=== PATIENT | male | born 1985 | race Caucasian/White ===

== ENCOUNTER 2023-11-14 07:06 | Inpatient (IN) ==
[2023-11-14 07:44] LABS: ABS Eosinophils 0.3 10^3/uL (0.0-0.5); ABS Lymphocytes 3.2 10^3/uL (1.0-4.8); ABS Monocytes 0.6 10^3/uL (0.0-1.1); ABS Neutrophils 3.5 10^3/uL (1.5-7.6); ABS Nucleated RBC 0.01 10^3/ul; Eosinophil % 3.5 %; Hematocrit 45.4 % (38-53); Hemoglobin 15.6 g/dL (13.2-16.3); Lymphocyte % 41.9 %; Mean Corpuscular Hemoglobin 31.9 pg (27-33); Mean Corpuscular Hgb Conc 34.4 g/dL (31-36); Mean Corpuscular Volume 92.8 fL (80-97); Mean Platelet Volume 9.4 fL (7.5-11.2); Nucleated Red Blood Cells % 0.1 %/100WBC (0.0-0.8); Platelet Count 185 10^3/uL (150-450); Red Blood Count 4.89 10^6/uL (4.06-5.63); Red Cell Distribution Width 12.7 % (12-17); White Blood Count 7.5 10^3/uL (3.6-10.2)
[2023-11-14] MEDS: NS 0.9% 1000 ml BAG 1,000 ML IV ONE (07:45)
[2023-11-14 08:21] LABS: TSH Ultra Thyroid Stim Horm 3.6 mcIU/mL (0.34-5.60)
[2023-11-14 08:23] LABS: Free T4 1.34 ng/dL (0.61-1.12)
[2023-11-14 08:24] LABS: Albumin 4.4 g/dL (3.2-5.2); Albumin/Globulin Ratio 1.9 (1-3); Calcium 9.4 mg/dL (8.6-10.3); Creatinine, Serum 1.08 mg/dL (0.67-1.17); Globulin 2.3 g/dL (2-4); Magnesium 1.7 mg/dL (1.9-2.7); Potassium 4.6 mmol/L (3.5-5.0); Total Bilirubin 1.3 mg/dL (0.2-1.0); Total Protein 6.7 g/dL (6.4-8.9); eGFR CKD-EPI 90.6 (>60)
[2023-11-14] MEDS: Magnesium Sulfate 2 gm BAG 2 GM/50 ML BAG IVPB ONE (08:57)
[2023-11-14 09:16] LABS: INR 1.28 (0.85-1.14)
[2023-11-14 09:21] LABS: High Sensitivity Troponin 1 Hr 5 pg/mL (<20)
[2023-11-15 06:35] LABS: Calcium 9.2 mg/dL (8.6-10.3); Creatinine, Serum 1.15 mg/dL (0.67-1.17); Magnesium 1.9 mg/dL (1.9-2.7); Potassium 4.5 mmol/L (3.5-5.0); eGFR CKD-EPI 84.1 (>60)
[2023-11-15] MEDS ORDERED: Naloxone 0.4 mg VIAL 0.4 mg/ml 1 ml VIAL ONE (07:54)
[2023-11-15] MEDS ORDERED: fentaNYL 100 mcg/2 ml 50 MCG/ML VIAL ONE (07:54)
[2023-11-15] MEDS ORDERED: Flumazenil 0.5 mg/5 ml 0.1 MG/ML 5 ml VIAL ONE (07:54)
[2023-11-15] MEDS ORDERED: Midazolam 5 mg/5 ml VIAL 1 mg/ml 5 ml VIAL (5 mg) ONE (07:55)
[2023-11-15] MEDS: fentaNYL 100 mcg/2 ml 50 MCG/ML VIAL IV SLOW PU ONE (10:37)
[2023-11-15] MEDS: Midazolam 10 mg/10 ml VIAL 1 mg/ml 10 ml VIAL (10 mg) IV SLOW PU ONE (10:37)
[2023-11-15] MEDS: NS 0.9% 1000 ml BAG 1,000 ML IV ONE (10:38)
[2023-11-15] MEDS: Empagliflozin 25 MG TAB PO SCH (10:56)
[2023-11-15] MEDS: Magnesium Sulfate IV 1GM/100ML 1 GM/100 ML BAG IV ONE (10:56)
[2023-11-15] MEDS: Metoprolol Tartrate 5 mg VIAL 5 ml VIAL (1 mg/ml) IV ONE (12:52)
[2023-11-15] MEDS ORDERED: Benzocaine/Menthol LOZ MT PRN (22:25)
[2023-11-17 09:12] LABS: Calcium 9.4 mg/dL (8.6-10.3); Creatinine, Serum 1.13 mg/dL (0.67-1.17); Magnesium 1.8 mg/dL (1.9-2.7); Potassium 5.2 mmol/L (3.5-5.0); eGFR CKD-EPI 85.9 (>60)
[2023-11-17 10:51] VITALS: BP 90/68
[2023-11-17] MEDS: Magnesium Sulfate IV 1GM/100ML 1 GM/100 ML BAG IV ONE (10:52)
== END 2023-11-17 13:08 | disposition home or self-care (01) | DRG 310 ==
LOC: ED 07:06 → EDHOLD 07:06 → MEDTELE 12:38
PROVIDERS: ADMIT Student in an Organized Health Care Education/Training Program; ATTEND Student in an Organized Health Care Education/Training Program